=== PATIENT | female | born 1995 | race Caucasian/White ===

== ENCOUNTER 2016-10-02 14:46 | Emergency (ER) | payer BC, MEDICAID ==
[~2016-10-02 14:46] MED LIST: Ondansetron 4 MG Tab.DIS PO ONE
[2016-10-02 14:51] VITALS: BP 149/96
--- NOTE | 2016-10-02 15:06 | EDM.PDOC ---
ED HPI GENERAL MEDICAL PROBLEM - General Chief Complaint: General Stated Complaint: dizziness/vomting Time Seen by Provider: 10/02/16 15:06 Source of Information: Reports: Patient History Limitations: Reports: No Limitations - History of Present Illness INITIAL COMMENTS - FREE TEXT/NARRATIVE: Patient 3 year history of anxiety and depression on Xanax .5 mg recently discontinued with gradual weaning states Monday last dose of medication. Monday with nausea and vomiting and vertigo. Presents to ER today with continuing S/S. Last emesis today-few crackers. On Depo Provera Injections-LMP ? . Onset: Gradual Onset Date: 09/30/16 Onset Time: 08:00 Duration: Day(s):, Waxing/Waning Severity: Mild Improves with: Reports: None Worsens with: Reports: Movement Associated Symptoms: Reports: Loss of Appetite, Nausea/Vomiting. Denies: Confusion, Chest Pain, Cough, Fever/Chills, Rash, Syncope Treatments [employer]: Reports: Other (see below) (Fluids) - Related Data Allergies Allergy/AdvReac Type Severity Reaction Status Date / Time morphine Allergy Nausea and Verified 05/03/16 04:27 Vomiting Home Meds: Home Meds Venlafaxine [Effexor] 150 mg PO BEDTIME 05/03/16 [History] medroxyPROGESTERone Acetate [Depo-Provera] 150 mg IM Q90D 10/02/16 [History] Past Medical History HEENT History: Reports: Other (See Below) (Rhinoplasty) Cardiovascular History: Reports: None Gastrointestinal History: Reports: Pancreatitis, PUD Genitourinary History: Reports: Renal Calculus LMP (Approximate): Other (See Below) (Depoprovera Contraception) Musculoskeletal History: Reports: None Neurological History: Reports: None Psychiatric History: Reports: Anxiety, Depression, Other (See Below) (Recent cessation of Xanax-as it exacerbating depression) - Past Surgical History HEENT Surgical History: Reports: Adenoidectomy, Tonsillectomy Other HEENT Surgeries/Procedures: NASAL SURGERY THIS PAST MONDAY Social & Family History - Family History Family Medical History: Noncontributory - Tobacco Use Smoking Status *Q: Never Smoker Second Hand Smoke Exposure: No - Tobacco Core Measures Tobacco Use/Smoking Within Last 30 Days: No - Caffeine Use Caffeine Use: Reports: Soda - Alcohol Use Alcohol Use History: No - Recreational Drug Use Recreational Drug Use: No - Sexual History Sexual History: Denies: Sexually Active - Living Situation & Occupation Living situation: Reports: Single, with Family 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 Denies: Fever, Chills HEENT: Reports: Vertigo. Denies: Ear Pain, Throat Pain Respiratory: Reports: No Symptoms Cardiovascular: Reports: No Symptoms Endocrine: Reports: No Symptoms GI/Abdominal: Reports: Decreased Appetite, Nausea, Vomiting. Denies: Abdominal Pain, Diarrhea, Hematemesis : Reports: No Symptoms Musculoskeletal: Reports: No Symptoms Skin: Reports: No Symptoms Neurological: Reports: No Symptoms Psychiatric: Reports: Anxiety, Depression. Denies: Agitation, Confusion, Cravings, Hallucinations, Suicidal Ideation Hematologic/Lymphatic: Reports: No Symptoms Immunologic: Reports: No Symptoms ED EXAM, GENERAL - Physical Exam Exam: See Below Exam Limited By: No Limitations General Appearance: Alert, WD/WN, No Apparent Distress Eye Exam: Bilateral Eye: EOMI, Normal Inspection, Nystagmus (Negative), PERRL, Vision Changes Ears: Normal External Exam, Normal Canal, Hearing Grossly Normal, Normal TMs. No: Hearing Loss Ear Exam: Bilateral Ear: Auricle Normal, Canal Normal, TM normal, Bleeding, Discharge, Erythema, Tenderness (Negative) Nose: Normal Inspection, Normal Mucosa, No Blood. No: Nasal Tenderness, Nasal Deformity, Nasal Drainage Throat/Mouth: Normal Inspection, Normal Lips, Normal Teeth, Normal Gums, Normal Oropharynx, Normal Voice, No Airway Compromise Head: Atraumatic, Normocephalic Neck: Normal Inspection, Supple, Non-Tender, Full Range of Motion Respiratory/Chest: No Respiratory Distress, Lungs Clear, Normal Breath Sounds, No Accessory Muscle Use, Chest Non-Tender. No: Respiratory Distress Cardiovascular: Normal Peripheral Pulses, Regular Rate, Rhythm, No Edema, No JVD , No Murmur Peripheral Pulses: 2+: Radial (L), Radial (R), Dorsalis Pedis (L), Dorsalis Pedis (R) GI/Abdominal: Soft, Non-Tender, No Distention (Female) Exam: Deferred Rectal (Female) Exam: Deferred Back Exam: Normal Inspection, Full Range of Motion Extremities: Normal Inspection, Normal Range of Motion, Non-Tender, No Pedal Edema, Normal Capillary Refill Neurological: Alert, Oriented, Normal Cognition, Normal Gait, No Motor/Sensory Deficits Psychiatric: Normal Affect, Normal Mood. No: Anxious, Tearful Skin Exam: Warm, Dry, Intact, Normal Color Lymphatic: No Adenopathy Course - Vital Signs Last Recorded V/S: Last Vital Signs Temp 37.2 C 10/02/16 14:48 Pulse 99 10/02/16 14:48 Resp 20 10/02/16 14:48 BP 149/96 H 10/02/16 14:48 Pulse Ox 99 10/02/16 14:48 - Orders/Labs/Meds Orders: Active Orders 24 hr Category Date Time Status CULTURE URINE [RM] Routine Lab 10/02/16 15:41 Uncollected Labs: Laboratory Tests 10/02/16 10/02/16 10/02/16 Range/Units 15:02 15:17 15:17 WBC 11.4 H (5.0-10.0) 10^3/uL RBC 5.34 (4.00-5.50) 10^6/uL Hgb 16.4 H (12.0-16.0) g/dL Hct 48.4 H (37.0-47.0) % MCV 90.6 (82.0-94.0) fL MCH 30.7 (27.0-32.0) pg MCHC 33.9 (33.0-38.0) g/dL RDW Coeff of Kinsey 13.4 (11.0-15.0) % Plt Count 299 (150-400) 10^3/uL Neut % (Auto) 67.7 (35-85) % Lymph % (Auto) 24.2 (10-55) % [place] % (Auto) 5.5 (0-16) % Eos % (Auto) 2.3 (0-5) % Baso % (Auto) 0.3 (0-3) % Neut # (Auto) 7.74 H (1.80-7.00) 10^3/uL Lymph # (Auto) 2.76 (1.00-4.80) 10^3/uL [place] # (Auto) 0.63 (0.00-0.80) 10^3/uL Eos # (Auto) 0.26 (0.00-0.45) 10^3/uL Baso # (Auto) 0.03 10^3/uL Sodium 141 (136-145) mEq/L Potassium 4.0 D (3.5-5.0) mEq/L Chloride 105 (98-106) mEq/L Carbon Dioxide 25 (21-32) mmol/L BUN 12 (7-18) mg/dL Creatinine 0.8 (0.6-1.0) mg/dL Est Cr Clr Drug Dosing 117.23 mL/min Estimated GFR (MDRD) > 60 (>=60) mL/min Glucose 83 D (75-99) mg/dL Calcium 9.5 (8.4-10.1) mg/dL Total Bilirubin 0.3 (0.0-1.0) mg/dL AST 21 (15-37) U/L ALT 42 (12-78) U/L Alkaline Phosphatase 76 (46-116) U/L C-Reactive Protein < 0.2 L (0.2-0.8) mg/dL Total Protein 8.0 (6.4-8.2) g/dL Albumin 4.2 (3.4-5.0) g/dL HCG, Qual Urine Color Yellow (YELLOW) Urine Appearance Slightly cloudy (CLEAR) Urine pH 5.5 (4.5-8.0) Ur Specific [place] 1.027 H (1.003-1.020) Urine Protein Negative (NEGATIVE) mg/dL Urine Glucose (UA) Negative (NEGATIVE) mg/dL Urine Ketones Negative (NEGATIVE) mg/dL Urine Occult Blood Negative (NEGATIVE) Urine Nitrite Negative (NEGATIVE) Urine Bilirubin Negative (NEGATIVE) Urine Urobilinogen 0.2 (0.2-1.0) EU/dL Ur Leukocyte Esterase Small H (NEGATIVE) Urine RBC Not seen (0-5) /HPF Urine WBC 20-30 H (0-5) /HPF Urine WBC Clumps Occasional H (NOT SEEN) /HPF Ur Squamous Epith Cells Few H (NOT SEEN) /HPF Urine Bacteria Moderate H (NOT SEEN) /HPF 06//17 Range/Units 15:17 WBC (5.0-10.0) 10^3/uL RBC (4.00-5.50) 10^6/uL Hgb (12.0-16.0) g/dL Hct (37.0-47.0) % MCV (82.0-94.0) fL MCH (27.0-32.0) pg MCHC (33.0-38.0) g/dL RDW Coeff of [place] (11.0-15.0) % Plt Count (150-400) 10^3/uL Neut % (Auto) (35-85) % Lymph % (Auto) (10-55) % [place] % (Auto) (0-16) % Eos % (Auto) (0-5) % Baso % (Auto) (0-3) % Neut # (Auto) (1.80-7.00) 10^3/uL Lymph # (Auto) (1.00-4.80) 10^3/uL [place] # (Auto) (0.00-0.80) 10^3/uL Eos # (Auto) (0.00-0.45) 10^3/uL Baso # (Auto) 10^3/uL Sodium (136-145) mEq/L Potassium (3.5-5.0) mEq/L Chloride (98-106) mEq/L Carbon Dioxide (21-32) mmol/L BUN (7-18) mg/dL Creatinine (0.6-1.0) mg/dL Est Cr Clr Drug Dosing mL/min Estimated GFR (MDRD) (>=60) mL/min Glucose (75-99) mg/dL Calcium (8.4-10.1) mg/dL Total Bilirubin (0.0-1.0) mg/dL AST (15-37) U/L ALT (12-78) U/L Alkaline Phosphatase (46-116) U/L C-Reactive Protein (0.2-0.8) mg/dL Total Protein (6.4-8.2) g/dL Albumin (3.4-5.0) g/dL HCG, Qual Negative Urine Color (YELLOW) Urine Appearance (CLEAR) Urine pH (4.5-8.0) Ur Specific [place] (1.003-1.020) Urine Protein (NEGATIVE) mg/dL Urine Glucose (UA) (NEGATIVE) mg/dL Urine Ketones (NEGATIVE) mg/dL Urine Occult Blood (NEGATIVE) Urine Nitrite (NEGATIVE) Urine Bilirubin (NEGATIVE) Urine Urobilinogen (0.2-1.0) EU/dL Ur Leukocyte Esterase (NEGATIVE) Urine RBC (0-5) /HPF Urine WBC (0-5) /HPF Urine WBC Clumps (NOT SEEN) /HPF Ur Squamous Epith Cells (NOT SEEN) /HPF Urine Bacteria (NOT SEEN) /HPF Meds: Medications Discontinued Medications Generic Name Dose Route Start Last Admin Trade Name Freq PRN Reason Stop Dose Admin Ceftriaxone Sodium 1 gm 10/02/16 15:41 Rocephin IM 10/02/16 15:42 ONETIME ONE Ondansetron HCl 1 packet 10/02/16 15:36 Take Home: Ondansetron Odt 4 Mg, 2 Tab Pack PO 10/02/16 15:37 ONETIME ONE Venlafaxine HCl Confirm 10/02/16 15:49 Effexor Xr Administered 10/02/16 15:50 Dose 75 mg .ROUTE .STK-MED ONE Venlafaxine HCl Confirm 10/02/16 15:50 Effexor Xr Administered 10/02/16 15:51 Dose 75 mg .ROUTE .STK-MED ONE Venlafaxine HCl 75 mg 10/02/16 15:41 10/02/16 15:42 Effexor Xr PO 10/02/16 15:42 75 mg ONETIME ONE Administration Departure - Departure Time of Disposition: 15:47 Disposition: Home, Self-Care 01 Condition: good Clinical Impression: UTI, Urinary tract infectious disease, Nausea & vomiting, Depression - Discharge Information Forms: ED Department Discharge Additional Instructions: Discussed with patient activation effects of Effexor will decrease to 75 mg daily. Rocephin 1 gm IM now Septra DS 1 po BID x 10 days. Zofran 4 mg po evry 8 hours prn nausea. Fluids and Hydration F/U if S/S worsen. Take Home Sheets reviewed. - Problem List & Annotations (1) Nausea & vomiting SNOMED Code(s): 09744208 Code(s): R11.2 - NAUSEA WITH VOMITING, UNSPECIFIED Status: Acute Current Visit: Yes (2) Depression SNOMED Code(s): 72165368 Code(s): F32.9 - MAJOR DEPRESSIVE DISORDER, SINGLE EPISODE, UNSPECIFIED Status: Acute Current Visit: Yes Qualifiers: Depression Type: major depressive disorder Major depression recurrence: recurrent Active/Remission status: in partial remission Qualified Code(s): F33.41 - Major depressive disorder, recurrent, in partial remission (3) UTI (urinary tract infection) SNOMED Code(s): 37563584 Code(s): N39.0 - URINARY TRACT INFECTION, SITE NOT SPECIFIED Status: Acute Current Visit: Yes - Problem List Review Problem List Initiated/Reviewed/Updated: Yes - My Orders Last 24 Hours: My Active Orders 10/02/16 15:41 CULTURE URINE [RM] Routine - Assessment/Plan Last 24 Hours: My Active Orders 10/02/16 15:41 CULTURE URINE [RM] Routine Assessment:: Evaluation in ER UTI pending C and S Anxiety secondary to cessation of Xanax. Mild Dehydration. Plan: Discussed with patient activation effects of Effexor will decrease to 75 mg daily. Rocephin 1 gm IM now Septra DS 1 po BID x 10 days. Zofran 4 mg po evry 8 hours prn nausea. Fluids and Hydration F/U if S/S worsen. Take Home Sheets reviewed.
[2016-10-02 15:35] LABS: CHLORIDE,CL 105 mEq/L (98-106); SODIUM,NA 141 mEq/L (136-145)
[2016-10-02] MEDS ORDERED: Take Home: Ondansetron 4 MG Tab.DIS, 2 Tab Pack PO ONE (15:36)
[2016-10-02] MEDS ORDERED: cefTRIAXone 1 GM Vial IM ONE (15:41)
[2016-10-02] MEDS ORDERED: Venlafaxine 75 MG Cap.ER PO ONE (15:41)
[2016-10-02] MEDS ORDERED: Lidocaine 1% 20 ML MDV INJECT ONE (15:45)
[2016-10-02] MEDS ORDERED: medroxyPROGESTERone 150 MG/ML SDV IM SCH (15:45)
[2016-10-02] MEDS ORDERED: Venlafaxine 75 MG Cap.ER ONE ×2 (15:49→15:50)
[2016-10-02] MEDS ORDERED: VENLAFAXINE 150 MG PO SCH (20:00)
== END 2016-10-02 16:00 | disposition home or self-care (01) ==
LOC: CC.ED 14:46
DX: N39.0 Urinary tract infection, site not specified (principal); R11.2 Nausea with vomiting, unspecified; F32.9 Major depressive disorder, single episode, unspecified; F41.9 Anxiety disorder, unspecified; Z88.5 Allergy status to narcotic agent; Z98.890 Other specified postprocedural states
CPT/HCPCS: 36415; 80053; 81001; 84703; 85025; 86140; 87086; 96372; 99284; A9270; J0696

== ENCOUNTER 2017-02-24 20:16 | Emergency (ER) | payer BC, MEDICAID ==
[2017-02-24 20:20] VITALS: BP 156/92
--- NOTE | 2017-02-24 20:47 | EDM.PDOC ---
ED HPI GENERAL MEDICAL PROBLEM - General Chief Complaint: Upper Extremity Injury/Pain Stated Complaint: L)shoulder pain Time Seen by Provider: 02/24/17 20:20 Source of Information: Reports: Patient, Family History Limitations: Reports: No Limitations - History of Present Illness INITIAL COMMENTS - FREE TEXT/NARRATIVE: This patient is a 21 year old female that presents to the ER. Patient is accompanied by her mother at bedside. Patient reports that she had a surgery to the right shoulder today at 7am in [place]. She reports that she was having a lot of pain to the right shoulder so anesthesia did a nerve block to the right shoulder. Patient reports that during the nerve block she experienced right sided facial droop, then 2-3 minutes later complete numbness of the RUE. She reports that anesthesia was notified. She reports that anesthesia told her that this was normal and it would wear off in a couple of hours. The patient reports also since after the block she has experienced some mild right sided chest pain , mild shortness of breath, the need to cough but has not, like she can not take a big deep breath. The patient reports that she became concerned about the facial droop and this is her reason for ER visit. The patient mother reports that patient had HR above 100 before her procedure today. The patient reports that she has no other neurological dificulties, she was able to ambulate without difficulty. No BLE weakness. Onset: Today Onset Date: 02/24/17 Onset Time: 12:00 Duration: Hour(s): (9) Location: Reports: Face, Chest Severity: Mild Improves with: Reports: None Worsens with: Reports: Breathing Associated Symptoms: Reports: Chest Pain, Cough, Nausea/Vomiting, Shortness of Breath. Denies: Confusion, cough w sputum, Diaphoresis, Fever/Chills, Headaches , Loss of Appetite, Malaise, Rash, Seizure, Syncope, Weakness Left Shoulder Pain Score (Numeric/FACES): 7 - Related Data Allergies Allergy/AdvReac Type Severity Reaction Status Date / Time morphine Allergy Nausea and Verified 02/24/17 20:20 Vomiting Home Meds: Home Meds medroxyPROGESTERone Acetate [Depo-Provera] 150 mg IM Q90D 10/02/16 [History] Past Medical History HEENT History: Reports: Other (See Below) Cardiovascular History: Reports: None Gastrointestinal History: Reports: Pancreatitis, PUD Genitourinary History: Reports: Renal Calculus Musculoskeletal History: Reports: None Neurological History: Reports: None Psychiatric History: Reports: Anxiety, Depression, Other (See Below) - Past Surgical History HEENT Surgical History: Reports: Adenoidectomy, Tonsillectomy Other HEENT Surgeries/Procedures: NASAL SURGERY THIS PAST MONDAY Social & Family History - Family History Family Medical History: Noncontributory - Tobacco Use Smoking Status *Q: Never Smoker Second Hand Smoke Exposure: No - Caffeine Use Caffeine Use: Reports: None - Recreational Drug Use Recreational Drug Use: No - Living Situation & Occupation Living situation: Reports: Single, with Family 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 Denies : Wheezing, Cough, Sputum, Hemoptysis Cardiovascular: Reports: Lightheadedness GI/Abdominal: Reports: Nausea Genitourinary: Reports: No Symptoms Musculoskeletal: Reports: No Symptoms Skin: Reports: No Symptoms Neurological: Reports: Numbness (RUE after nerve block.), Weakness (Right sided facial droop post nerve block.). Denies: Confusion, Dizziness, Headache, Seizure, Syncope, Tingling, Tremors, Trouble Speaking, Difficulty Walking, Change in Speech, Gait Disturbance Psychiatric: Reports: No Symptoms ED EXAM, GENERAL - Physical Exam Exam: See Below Exam Limited By: No Limitations General Appearance: Alert, WD/WN, No Apparent Distress, Anxious Eye Exam: Right Eye: Other (difficulty opening eye. right sided eye drop.), Bilateral Eye: EOMI, Normal Inspection, PERRL Ears: Normal External Exam, Normal Canal, Hearing Grossly Normal, Normal TMs Ear Exam: Bilateral Ear: Auricle Normal, Canal Normal, TM normal Nose: Normal Inspection, Normal Mucosa, No Blood Throat/Mouth: Normal Lips, Normal Teeth, Normal Gums, Normal Oropharynx, Normal Voice, No Airway Compromise, Other (Right sided droop mild. ) Head: Atraumatic, Normocephalic Neck: Normal Inspection, Supple, Non-Tender, Full Range of Motion Respiratory/Chest: No Respiratory Distress, Lungs Clear, Normal Breath Sounds, No Accessory Muscle Use, Chest Non-Tender Cardiovascular: Normal Peripheral Pulses, No Edema, No Gallop, No JVD, No Murmur , No Rub, Tachycardia (116 on exam.). No: JVD Peripheral Pulses: 2+: Radial (L), Radial (R), Posterior Tibial (L), Posterior Tibial (R) GI/Abdominal: Soft, Non-Tender Back Exam: Normal Inspection, Full Range of Motion. No: CVA Tenderness (L), CVA Tenderness (R) Extremities: Non-Tender, No Pedal Edema, Normal Capillary Refill, Limited Range of Motion (RUE in sling. Numb due to block and surgery.) Neurological: Alert, Oriented, Normal Cognition, Normal Gait, No Motor/Sensory Deficits, Sensory/Motor Deficit (Right sided facial droop, mild. ). No: Inattentive, Confused, Disoriented, Slow to Respond, Unresponsive, Memory Loss Remote Events, Memory Loss Recent Events, Abnormal Gait, Abnormal Reflexes Psychiatric: Normal Mood, Anxious Skin Exam: Warm, Dry, Intact, Normal Color, No Rash Lymphatic: No Adenopathy EKG INTERPRETATION EKG Date: 02/24/17 Time: 21:54 Rhythm: Other (Tachycardia) Rate (Beats/Min): 107 ST-T: Normal Comparison: NA - No Prior EKG Course - Vital Signs Last Recorded V/S: Last Vital Signs Temp 99.3 F 02/24/17 20:17 Pulse 124 H 02/24/17 20:17 Resp 20 02/24/17 20:17 BP 156/92 H 02/24/17 20:17 Pulse Ox 94 L 02/24/17 20:17 - Orders/Labs/Meds Orders: Active Orders 24 hr Category Date Time Status EKG Documentation Completion [RC] STAT Care 02/24/17 20:50 Inactive Vital Signs [RC] STAT Care 02/24/17 21:07 Active CXR [Chest 2V] [CR] Stat Exams 02/24/17 21:44 Taken EKG 12 Lead [EK] Routine Ther 02/24/17 21:23 Ordered Labs: Laboratory Tests 02/24/17 02/24/17 02/24/17 Range/Units 20:35 21:05 21:05 WBC 14.4 H (5.0-10.0) 10^3/uL RBC 4.74 (4.00-5.50) 10^6/uL Hgb 14.3 (12.0-16.0) g/dL Hct 42.2 (37.0-47.0) % MCV 89.0 (82.0-94.0) fL MCH 30.2 (27.0-32.0) pg MCHC 33.9 (33.0-38.0) g/dL RDW Coeff of [place] 12.8 (11.0-15.0) % Plt Count 413 H (150-400) 10^3/uL Neut % (Auto) 91.3 H (35-85) % Lymph % (Auto) 6.2 L (10-55) % [place] % (Auto) 2.4 (0-16) % Eos % (Auto) 0 (0-5) % Baso % (Auto) 0.1 (0-3) % Neut # (Auto) 13.18 H (1.80-7.00) 10^3/uL Lymph # (Auto) 0.89 L (1.00-4.80) 10^3/uL [place] # (Auto) 0.35 (0.00-0.80) 10^3/uL Eos # (Auto) 0.00 (0.00-0.45) 10^3/uL Baso # (Auto) 0.01 10^3/uL D-Dimer, Quantitative 0.46 (0.00-0.50) Sodium 141 (136-145) mEq/L Potassium 4.1 (3.5-5.0) mEq/L Chloride 106 (98-106) mEq/L Carbon Dioxide 20 L (21-32) mmol/L BUN 9 (7-18) mg/dL Creatinine 1.0 (0.6-1.0) mg/dL Est Cr Clr Drug Dosing 93.78 mL/min Estimated GFR (MDRD) > 60 (>=60) mL/min Glucose 211 H D (75-99) mg/dL Calcium 9.8 (8.4-10.1) mg/dL Total Bilirubin 0.2 (0.0-1.0) mg/dL AST 32 (15-37) U/L ALT 57 (12-78) U/L Alkaline Phosphatase 68 (46-116) U/L Troponin I (0.00-0.06) ng/mL Total Protein 7.8 (6.4-8.2) g/dL Albumin 3.8 (3.4-5.0) g/dL HCG, Qual 02/24/17 02/24/17 Range/Units 21:05 21:05 WBC (5.0-10.0) 10^3/uL RBC (4.00-5.50) 10^6/uL Hgb (12.0-16.0) g/dL Hct (37.0-47.0) % MCV (82.0-94.0) fL MCH (27.0-32.0) pg MCHC (33.0-38.0) g/dL RDW Coeff of [place] (11.0-15.0) % Plt Count (150-400) 10^3/uL Neut % (Auto) (35-85) % Lymph % (Auto) (10-55) % [place] % (Auto) (0-16) % Eos % (Auto) (0-5) % Baso % (Auto) (0-3) % Neut # (Auto) (1.80-7.00) 10^3/uL Lymph # (Auto) (1.00-4.80) 10^3/uL [place] # (Auto) (0.00-0.80) 10^3/uL Eos # (Auto) (0.00-0.45) 10^3/uL Baso # (Auto) 10^3/uL D-Dimer, Quantitative (0.00-0.50) Sodium (136-145) mEq/L Potassium (3.5-5.0) mEq/L Chloride (98-106) mEq/L Carbon Dioxide (21-32) mmol/L BUN (7-18) mg/dL Creatinine (0.6-1.0) mg/dL Est Cr Clr Drug Dosing mL/min Estimated GFR (MDRD) (>=60) mL/min Glucose (75-99) mg/dL Calcium (8.4-10.1) mg/dL Total Bilirubin (0.0-1.0) mg/dL AST (15-37) U/L ALT (12-78) U/L Alkaline Phosphatase (46-116) U/L Troponin I < 0.017 (0.00-0.06) ng/mL Total Protein (6.4-8.2) g/dL Albumin (3.4-5.0) g/dL HCG, Qual Negative Meds: Medications Discontinued Medications Generic Name Dose Route Start Last Admin Trade Name Manuel PRN Reason Stop Dose Admin Ondansetron HCl 4 mg 02/24/17 21:00 02/24/17 21:04 Zofran Odt PO 02/24/17 21:01 4 mg ONETIME ONE Administration - Radiology Interpretation Free Text/Narrative:: CXR: No cardiac enlargement. No localized infiltrates. The diaphragm is raised on the right consistent with anesthesia nerve block per [employer]. No pneumothorax. - Re-Assessments/Exams Free Text/Narrative Re-Assessment/Exam: 02/24/17 21:12 The only neurological deficits the patient has is in the face. She has no right sided leg droop or drift. She is ambulatory without difficulty. I am unable to assess RUE as this is sling post procedure and arm is numb. 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 I will still work this patient up for possible PE and labs. I did call and spoke to Dr. Villanueva with [facility], she agrees to do labs on patient. 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 02/24/17 21:42 Stroke score 1. GCS 15. 02/24/17 22:32 No signs of stroke. Labs have elevated wbc possibly due to procedure, elevated low grade temp possibly due to anesthesia. With this two and elevated diaphram, I will prescribe an abx. Patient and mother educated when to return and educated to followup with surgeon and anesthesia. Departure - Departure Time of Disposition: 22:33 Disposition: Home, Self-Care 01 Condition: Good Clinical Impression: Angie's syndrome Adv eff nerve-block anes Qualifiers: Encounter type: initial encounter Qualified Code(s): T41.3X5A - Adverse effect of local anesthetics, initial encounter - Discharge Information Instructions: Pain Medicine Instructions, [id number] Referrals: PCP,None [Primary Care Provider] - Forms: ED Department Discharge Additional Instructions: Followup with your anesthesia Followup with your surgeon Followup with your primary care provider Return to the ER for worsening of condition or any emergent concerns Rest Pain medication as prescribed Motrin as needed for fever Your symptoms should resolve in 24-48 hours, if not please see anesthesia It is believed that you have Angie's Syndrome Take big deep breathes Use incentive spirometer to prevent pneumonia Cefdinir 300mg 1 pill twice a day for 10 days #20 no refill - My Orders Last 24 Hours: My Active Orders 02/24/17 20:50 EKG Documentation Completion [RC] STAT 02/24/17 21:07 Vital Signs [RC] STAT 02/24/17 21:23 EKG 12 Lead [EK] Routine 02/24/17 21:44 CXR [Chest 2V] [CR] Stat - Assessment/Plan Last 24 Hours: My Active Orders 02/24/17 20:50 EKG Documentation Completion [RC] STAT 02/24/17 21:07 Vital Signs [RC] STAT 02/24/17 21:23 EKG 12 Lead [EK] Routine 02/24/17 21:44 CXR [Chest 2V] [CR] Stat Plan: PLEASE SEE RN NOTE FOR PFSH.
[2017-02-24] MEDS ORDERED: Ondansetron 4 MG Tab.DIS PO ONE (21:00)
[2017-02-24 21:21] LABS: CHLORIDE,CL 106 mEq/L (98-106); SODIUM,NA 141 mEq/L (136-145)
== END 2017-02-24 23:00 | disposition home or self-care (01) ==
LOC: CC.ED 20:16
DX: G90.2 Horner's syndrome (principal); T41.3X5A Adverse effect of local anesthetics, initial encounter; Z88.5 Allergy status to narcotic agent
CPT/HCPCS: 36415; 71020; 80053; 84484; 84703; 85025; 85379; 93005; 99283; A9270

== ENCOUNTER 2017-12-13 14:26 | Emergency (ER) | payer BC, MEDICAID ==
--- NOTE | 2017-12-13 15:10 | EDM.PDOC ---
ED HPI GENERAL MEDICAL PROBLEM - General Chief Complaint: Lower Extremity Injury/Pain Stated Complaint: LEG PAIN Time Seen by Provider: 12/13/17 15:03 - History of Present Illness INITIAL COMMENTS - FREE TEXT/NARRATIVE: Adriana is 22 year old female who presents to the ED with c/o left mid marroquin pain. She reports the pain started on Monday. She denies any injury to the affected area. No redness, swelling, ecchymosis. She rates the pain 8/10. She reports she last took ibuprofen on Monday. She denies pain at rest. Reports the pain worsens with ambulation. Denies any other symptoms. Left Leg Pain Score (Numeric/FACES): 8 - Related Data Allergies Allergy/AdvReac Type Severity Reaction Status Date / Time morphine Allergy Nausea and Verified 12/13/17 14:40 Vomiting Home Meds: Home Meds medroxyPROGESTERone Acetate [Depo-Provera] 150 mg IM Q90D 10/02/16 [History] Albuterol Sulfate [Ventolin Hfa] 1 - 2 puff INH Q4H PRN 03/26/17 [History] Past Medical History HEENT History: Reports: Other (See Below) Other HEENT History: seasonal allergies Cardiovascular History: Reports: None Respiratory History: Reports: Asthma Gastrointestinal History: Reports: Pancreatitis, PUD Genitourinary History: Reports: Renal Calculus Musculoskeletal History: Reports: None, Arthritis Other Musculoskeletal History: ARTHRITIS-RIGHT SHOULDER Neurological History: Reports: None Psychiatric History: Reports: Anxiety, Depression, Other (See Below) Endocrine/Metabolic History: Reports: Obesity/BMI 30+ - Past Surgical History HEENT Surgical History: Reports: Adenoidectomy, Tonsillectomy Other HEENT Surgeries/Procedures: NASAL SURGERY Musculoskeletal Surgical History: Reports: Shoulder Surgery Other Musculoskeletal Surgeries/Procedures:: RIGHT SHOULDER-SPURS REMOVED Social & Family History - Family History Family Medical History: Noncontributory - Tobacco Use Smoking Status *Q: Never Smoker - Caffeine Use Caffeine Use: Reports: Soda, Tea - Recreational Drug Use Recreational Drug Use: No - Living Situation & Occupation Living situation: Reports: Single, with Family 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 ED EXAM, GENERAL - Physical Exam Exam: See Below Exam Limited By: No Limitations General Appearance: Alert, WD/WN, No Apparent Distress Peripheral Pulses: 2+: Posterior Tibial (L), Posterior Tibial (R), Dorsalis Pedis (L), Dorsalis Pedis (R) Extremities: Normal Inspection, Normal Range of Motion, No Pedal Edema, Normal Capillary Refill, Leg Pain, Other (tenderness to left mid anterior marroquin). No: Pedal Edema, Joint Swelling, Escobar's Sign, Increased Warmth, Redness Neurological: Alert, Oriented, CN II-XII Intact, Normal Cognition, Normal Gait, Normal Reflexes, No Motor/Sensory Deficits Psychiatric: Normal Affect, Normal Mood Skin Exam: Warm, Dry, Intact, Normal Color, No Rash Course - Vital Signs Last Recorded V/S: Last Vital Signs Temp 98 F 12/13/17 15:30 Pulse 107 H 12/13/17 15:30 Resp 18 12/13/17 15:30 BP 159/97 H 12/13/17 15:30 Pulse Ox 96 12/13/17 15:30 Departure - Departure Time of Disposition: 15:21 Disposition: Home, Self-Care 01 Condition: Good Clinical Impression: Pain in left marroquin, Elevated blood pressure reading Marroquin splint Qualifiers: Encounter type: initial encounter Laterality: left Qualified Code(s): S86.892A - Other injury of other muscle(s) and tendon(s) at lower leg level, left leg, initial encounter - Discharge Information *PRESCRIPTION DRUG MONITORING PROGRAM REVIEWED*: Not Applicable *COPY OF PRESCRIPTION DRUG MONITORING REPORT IN PATIENT RASHAD: Not Applicable Instructions: Marroquin Splints Referrals: Juan Antonio Hernandez MD [Primary Care Provider] - Forms: ED Department Discharge Additional Instructions: Xrays normal Alternate Tylenol and ibuprofen up to every 3 hours as needed for pain Ice/heat to affected area as needed for comfort Stretch calf muscles Follow up in clinic with PCP for blood pressure recheck
[2017-12-13 16:09] VITALS: BP 159/97
== END 2017-12-13 15:33 | disposition home or self-care (01) ==
LOC: CC.ED 14:26
DX: S86.892A Other injury of other muscle(s) and tendon(s) at lower leg level, left leg, initial encounter (principal); J45.909 Unspecified asthma, uncomplicated; R03.0 Elevated blood-pressure reading, without diagnosis of hypertension; Z88.5 Allergy status to narcotic agent; Z79.899 Other long term (current) drug therapy; X58.XXXA Exposure to other specified factors, initial encounter
CPT/HCPCS: 73590-LT; 99283

== ENCOUNTER 2018-02-24 07:13 | Emergency (ER) | payer BC, MEDICAID ==
[2018-02-24 07:19] VITALS: BP 152/93
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
== END 2018-02-24 08:00 ==
LOC: CC.ED 07:13
DX: K04.7 Periapical abscess without sinus (principal); Z88.5 Allergy status to narcotic agent; Z77.22 Contact with and (suspected) exposure to environmental tobacco smoke (acute) (chronic)
CPT/HCPCS: 99282

== ENCOUNTER 2019-06-29 19:54 | Emergency (ER) | payer BC, MEDICAID ==
[2019-06-29 19:59] VITALS: BP 135/80; PULSE 126
[2019-06-29] MEDS ORDERED: Acetaminophen 325 MG Tab PO ONE (20:13)
[2019-06-29] MEDS ORDERED: Oseltamivir 75 MG Cap ONE (20:22)
--- NOTE | 2019-06-29 20:22 | EDM.PDOC ---
ED HPI GENERAL MEDICAL PROBLEM - General Chief Complaint: Abdominal Pain Stated Complaint: abdominal pain Time Seen by Provider: 06/29/19 20:08 Source of Information: Reports: Patient, Family History Limitations: Reports: No Limitations - History of Present Illness INITIAL COMMENTS - FREE TEXT/NARRATIVE: Patient to the emergency department complaint of generalized body aches with fever and chills off and on since yesterday. The patient denies any ear pain denies any runny nose or congestion denies any sore throat has an occasional cough, also complains of some generalized abdominal pain with nausea. There is no vomiting diarrhea no constipation she denies any neck, back pain or stiffness she denies any UTI type symptoms she is on Depakote and the last injection was 1 month ago. Onset: Sudden Duration: Day(s): (Yesterday) Location: Reports: Abdomen, Generalized (Generalized body aches). Denies: Head , Face Quality: Reports: Ache Severity: Moderate Improves with: Reports: None Worsens with: Reports: None Associated Symptoms: Reports: Cough, Fever/Chills, Nausea/Vomiting. 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 Lower Abdomen Pain Score (Numeric/FACES): 10 - Related Data Allergies Allergy/AdvReac Type Severity Reaction Status Date / Time morphine Allergy Nausea and Verified 02/24/18 07:19 Vomiting Home Meds: Home Meds medroxyPROGESTERone Acetate [Depo-Provera] 150 mg IM Q90D 10/02/16 [History] Acetaminophen/Codeine [Tylenol with Codeine No.3 300MG/30MG] 1 - 2 tab PO Q4H PRN 02/24/18 [History] Oseltamivir [Tamiflu] 75 mg PO BID 4 Days #8 cap 06/29/19 [Rx] Past Medical History HEENT History: Reports: Other (See Below) Other HEENT History: seasonal allergies Cardiovascular History: Reports: None Respiratory History: Reports: Asthma Gastrointestinal History: Reports: Pancreatitis, PUD Genitourinary History: Reports: Renal Calculus Musculoskeletal History: Reports: None, Arthritis Other Musculoskeletal History: ARTHRITIS-RIGHT SHOULDER Neurological History: Reports: None Psychiatric History: Reports: Anxiety, Depression, Other (See Below) Endocrine/Metabolic History: Reports: Obesity/BMI 30+ - Past Surgical History HEENT Surgical History: Reports: Adenoidectomy, Tonsillectomy Other HEENT Surgeries/Procedures: NASAL SURGERY Musculoskeletal Surgical History: Reports: Shoulder Surgery Other Musculoskeletal Surgeries/Procedures:: RIGHT SHOULDER-SPURS REMOVED Social & Family History - Family History Family Medical History: Noncontributory - Tobacco Use Smoking Status *Q: Never Smoker Second Hand Smoke Exposure: No - Caffeine Use Caffeine Use: Reports: None - Recreational Drug Use Recreational Drug Use: No - Living Situation & Occupation Living situation: Reports: Single, with Family 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 Denies: Wheezing Cardiovascular: Reports: No Symptoms. Denies: Chest Pain Endocrine: Reports: No Symptoms GI/Abdominal: Reports: Abdominal Pain, Nausea. Denies: Constipation, Diarrhea, Vomiting : Reports: No Symptoms Musculoskeletal: Reports: No Symptoms Skin: Reports: No Symptoms. Denies: Rash, Erythema Neurological: Reports: No Symptoms Psychiatric: Reports: No Symptoms ED EXAM, ENT - Physical Exam Exam: See Below Exam Limited By: No Limitations General Appearance: Alert, WD/WN, No Apparent Distress Ears: Normal External Exam, Normal Canal, Hearing Grossly Normal Nose: Normal Inspection, Normal Mucousa Mouth/Throat: Normal Inspection, Normal Lips, Normal Oropharynx Head: Atraumatic, Normocephalic Neck: Normal Inspection, Supple, Non-Tender, Full Range of Motion Respiratory/Chest: No Respiratory Distress, Lungs Clear, Normal Breath Sounds, Chest Non-Tender Cardiovascular: Normal Peripheral Pulses, Regular Rate, Rhythm GI/Abdominal: Soft, Non-Tender Back: Normal Inspection, Full Range of Motion Extremities: Normal Inspection, Normal Range of Motion, Non-Tender, Normal Capillary Refill Neurological: Alert, Oriented, Normal Cognition, Normal Gait, No Motor/Sensory Deficits Psychiatric: Normal Affect, Normal Mood Skin: Warm, Dry, Intact, Normal Color Course - Vital Signs Text/Narrative:: The patient was evaluated in the emergency department influenza test was completed and is positive for influenza A. The patient will be started on Tamiflu 1 p.o. twice daily the patient will be given a dose for tonight as well as a dose for tomorrow and a prescription started on Monday. The patient will increase fluids alternate Tylenol Motrin as needed for fever or pain and she is to return to the emergency department or the clinic sooner if worsening problems Last Recorded V/S: Last Vital Signs Temp 38.8 C H 06/29/19 19:55 Pulse 126 H 06/29/19 19:55 Resp 18 06/29/19 19:55 BP 135/80 06/29/19 19:55 Pulse Ox 100 06/29/19 19:55 - Orders/Labs/Meds Orders: Active Orders 24 hr Category Date Time Status Oseltamivir [Tamiflu] Med 06/30/19 08:00 Ordered 75 mg PO BID Oseltamivir [Tamiflu] Med 06/29/19 20:25 Once 75 mg PO ONETIME ONE Meds: Medications Discontinued Medications Generic Name Dose Route Start Last Admin Trade Name Rcq PRN Reason Stop Dose Admin Acetaminophen 650 mg 06/29/19 20:13 06/29/19 20:17 Tylenol PO 06/29/19 20:14 650 mg NOW ONE Administration Departure - Departure Time of Disposition: 20:27 Disposition: Home, Self-Care 01 Clinical Impression: Influenza A - Discharge Information *PRESCRIPTION DRUG MONITORING PROGRAM REVIEWED*: Not Applicable *COPY OF PRESCRIPTION DRUG MONITORING REPORT IN PATIENT RASHAD: Not Applicable Prescriptions: Oseltamivir [Tamiflu] 75 mg PO BID 4 Days #8 cap Instructions: Influenza, Adult, [id number] Referrals: Juan Antonio Hernandez MD [Primary Care Provider] - Forms: ED Department Discharge Additional Instructions: Rest Increase fluids Alternate Tylenol Motrin every 4 hours as needed for any fever Tamiflu 75 mg 1 twice a day for 5 days Follow-up with your family doctor this coming week or return to the emergency department sooner if worsening problems Remember you are considered contagious until no fever for 24 hours Sepsis Event Note - Evaluation Sepsis Screening Result: No Definite Risk - Focused Exam Vital Signs: Vital Signs Temp Pulse Resp BP Pulse Ox 06/29/19 19:55 38.8 C H 126 H 18 135/80 100 Date Exam was Performed: 06/29/19 Time Exam was Performed: 20:26 - Problem List & Annotations (1) Influenza A SNOMED Code(s): 095514882 Code(s): J10.1 - FLU DUE TO OTH IDENT INFLUENZA VIRUS W OTH RESP MANIFEST Status: Acute Priority: Medium Current Visit: Yes - Problem List Review Problem List Initiated/Reviewed/Updated: Yes - My Orders Last 24 Hours: My Active Orders 06/29/19 20:25 Oseltamivir [Tamiflu] 75 mg PO ONETIME ONE 06/30/19 08:00 Oseltamivir [Tamiflu] 75 mg PO BID - Assessment/Plan Last 24 Hours: My Active Orders 06/29/19 20:25 Oseltamivir [Tamiflu] 75 mg PO ONETIME ONE 06/30/19 08:00 Oseltamivir [Tamiflu] 75 mg PO BID Plan: As above
[2019-06-29] MEDS ORDERED: Oseltamivir 75 MG Cap PO ONE ×2 (20:25→20:35)
[2019-06-30] MEDS ORDERED: Oseltamivir 75 MG Cap PO SCH (08:00)
== END 2019-06-29 20:44 | disposition home or self-care (01) ==
LOC: CC.ED 19:54
DX: J10.1 Influenza due to other identified influenza virus with other respiratory manifestations (principal)
CPT/HCPCS: 87804; 99283; A9270